=== PATIENT | female | born 1995 | race Caucasian/White ===

== ENCOUNTER 2021-11-09 08:10 | Day surgery (SDC) | payer OTHER ==
[2021-11-09] VITALS (10 sets, daily range): BP systolic 100–140; BP diastolic 60–82
[~2021-11-09] VITALS: Ht 157.5 cm; Wt 58.0 kg
--- NOTE | 2021-11-09 07:20 | NUR ---
PATIENT TO ROOM AMBULATORY. CONSENT OBTAINED. VITAL SIGNS OBTAINED. DR MONTES NOTIFIED. NEW ORDERS RECEIVED. IV ESTABLISHED. ORIENTED PATIENT TO ROOM AND UNIT. CALL LIGHT IN REACH. WILL CONTINUE TO MONITOR.
[2021-11-09 08:57] LABS: HEMATOCRIT 40.5 % (37.0-47.0); HEMOGLOBIN 13.2 g/dl (12.0-16.0); IMMATURE GRANULOCYTES 0.4 % (0.0-5.0); MEAN CELL VOLUME 94.4 fL CALC (80.0-100.0); MEAN CORPUSCULAR HGB 30.8 pG CALC (26.0-32.0); MEAN CORPUSCULAR HGB CONC 32.6 g/dL CAL (32.0-36.0); NEUT# 2.86 thou/uL (2.00-7.15); RED BLOOD COUNT 4.29 mill/uL (4.20-5.60); RED CELL DISTRI WIDTH 12.1 % (11.5-15.5)
[2021-11-09 09:13] LABS: ALKALINE PHOSPHATASE 129 u/l (38-126); ANION GAP 15 (6-22 (CALC)); BILIRUBIN, TOTAL 0.5 mg/dL (0.0-1.4); BUN 13 mg/dL (7-17); BUN/CREATININE RATIO 22 (12-20 (CALC)); CARBON DIOXIDE 24 mmol/l (22-30); CHLORIDE 104 mmol/l (95-108); CREATININE 0.6 mg/dL (0.5-1.0); GFR > 60 ML/MIN (>=60 (CALC)); GFR FOR AFR.AMER. > 60 ML/MIN (>=60 (CALC)); POTASSIUM 4.2 mmol/l (3.5-5.1); SGOT/AST 34 u/l (14-36); SODIUM 139 mmol/l (137-146)
[2021-11-09 09:14] LABS: ALBUMIN 4.1 g/dL (3.2-5.0); BILIRUBIN, TOTAL 0.5 mg/dL (0.0-1.4)
[2021-11-09] MEDS ORDERED: NALTREXONE50 MG PO (10:38)
[2021-11-09] MEDS ORDERED: CLONIDINE0.1 MG PO (10:38)
[2021-11-09] MEDS ORDERED: KLONOPIN0.5 MG PO (10:40)
--- NOTE | 2021-11-09 18:25 | NUR ---
PATIENT CAME FROM TRAUMA FROM [facility] VIA BED BY LISA. LISA GAVE REPORT ON PATIENT. PATIENT IS SLEEPING WITH NO DISTRESS NOTED. O2 AT 2L VIA NC. BED ALARM IN PLACE.
--- NOTE | 2021-11-09 19:20 | NUR ---
PATIENT ALERT. CALM. ABLE TO MAKE NEEDS KNOWN. ASSESSMENT COMPLETE. NO SIGNS OF DISTRESS NOTED AT THIS TIME. BED ALARM REMAINS IN PLACE. BED IN LOW POSITION FOR PATIENT SAFETY. CALL LIGHT IN REACH.
--- NOTE | 2021-11-10 00:20 | NUR ---
PATIENT RESTING IN BED WITH EYES CLOSED. NO SIGNS OF DISTRESS NOTED. CALL LIGHT AND BELONGINGS REMAIN IN REACH. BED ALARM REMAINS ACTIVE.
[2021-11-10 04:00] VITALS: BP 123/64
--- NOTE | 2021-11-10 04:00 | NUR ---
PATIENT RESTING IN BED. NO COMPLAINTS VOICED AT THIS TIME. NO MORE DIARRHEA OR VOMITING AT THIS TIME. BED ALARM REMAINS ON FOR SAFETY. CALL LIGHT IN REACH. PATIENT DOES USE CALL LIGHT WHEN ASSISTANCE NEEDED.
[2021-11-10 06:03] LABS: HEMATOCRIT 40.2 % (37.0-47.0); HEMOGLOBIN 13.7 g/dl (12.0-16.0); IMMATURE GRANULOCYTES 0.2 % (0.0-5.0); MEAN CELL VOLUME 91.4 fL CALC (80.0-100.0); MEAN CORPUSCULAR HGB 31.1 pG CALC (26.0-32.0); MEAN CORPUSCULAR HGB CONC 34.1 g/dL CAL (32.0-36.0); NEUT# 12.03 thou/uL (2.00-7.15); RED BLOOD COUNT 4.4 mill/uL (4.20-5.60); RED CELL DISTRI WIDTH 11.9 % (11.5-15.5)
[2021-11-10 06:12] LABS: ALBUMIN 4.4 g/dL (3.2-5.0); ALKALINE PHOSPHATASE 140 u/l (38-126); ANION GAP 18 (6-22 (CALC)); BILIRUBIN, TOTAL 0.6 mg/dL (0.0-1.4); BUN 9 mg/dL (7-17); BUN/CREATININE RATIO 19 (12-20 (CALC)); CARBON DIOXIDE 20 mmol/l (22-30); CHLORIDE 105 mmol/l (95-108); CREATININE 0.5 mg/dL (0.5-1.0); GFR > 60 ML/MIN (>=60 (CALC)); GFR FOR AFR.AMER. > 60 ML/MIN (>=60 (CALC)); MAGNESIUM 1.9 mg/dL (1.6-2.3); POTASSIUM 3.6 mmol/l (3.5-5.1); SGOT/AST 30 u/l (14-36); SODIUM 139 mmol/l (137-146); TOTAL PROTEIN 7.6 g/dL (6.3-8.2)
--- NOTE | 2021-11-10 08:34 | NUR ---
PT SITTING IN RECLINER UPON ENTERING ROOM. ASSESSMENT ALLOWED AT THIS TIME. IV 20G RFA. HAS IVF BUT REFUSES AT THIS TIME. IV FLUSHED WITH NO RESISTANCE. PT STATES NAUSEAS. ZOFRAN GIVEN PER EMAR. STATES WANTING TO GO HOME. STATES NO OTHER NEEDS AT THIS TIME. FALL/SAFTEY PRECAUTIONS IN PLACE. CALL LIGHT WITHIN REACH.
[2021-11-10 10:54] VITALS: BP 110/58
--- NOTE | 2021-11-10 12:34 | NUR ---
PT RESTING IN BED AT THIS TIME. STATES STILL FEELING NAUSEAS BUT "NOT BAD BEFORE" PT HAS SHOWERED. HAD A BITE OF BANANA. STATES NO OTHER NEEDS AT THIS TIME. FALL/SAFTEY PRECAUTION IN PLACE. CALL LIGHT WITHIN REACH.
--- NOTE | 2021-11-10 14:46 | NUR ---
Discharge instructions given. Patient verbalizes understanding of same. Discharged in stable condition via Wheelchair to Home with staff. All belongings sent with pt. IV RFA 20G REMOVED CATHETER FULLY INTACT. ACCOMPANIED BY [facility] STAFF VIA WC WITH DANNA.
== END 2021-11-10 14:47 | disposition home or self-care (01) | DRG 897 ==
LOC: MS2 08:10 → ANR 08:10
PROVIDERS: ATTEND Anesthesiology
DX: F11.20 Opioid dependence, uncomplicated (principal)
CPT/HCPCS: J2060; J2354